=== PATIENT | male | born 1970 ===

== ENCOUNTER 2021-08-19 08:24 | Observation (INO) ==
--- NOTE | 2021-08-19 09:12 | Pre Anesthesia Assessment ---
Date of Service August 19, 2021 Pre Sedation Assessment Vital Signs Temp Pulse Resp BP Pulse Ox 08/19/21 08:42 36.5 C 88 20 143/73 H 98 Cardiovascular + regular rate and + regular rhythm + S1 normal and + S2 normal; no murmur + femoral pulses present and + radial pulses present; no JVD and no carotid bruit no edema Respiratory normal respiratory effort, lungs clear to auscultation Pre-Sedation Airway Assessment Smoking Status: Never smoker Hx Sleep Apnea: Yes Short, Thick Neck: Yes Thyromental Distance: < 3.5 Finger Breadths Oral Cavity: + WNL Mallampati Class: III ASA: ASA3 NPO Status Date of Last Intake of Fluids: 08/19/21 Time of Last Intake of Fluids: 06:00 Date of Last Intake of Solid Food: 08/18/21 Time of Last Intake of Solid Foods: 23:00 Procedure Planning Contraindications for Sedation: none Current Medications Reviewed: Yes Notes The planned sedation has been discussed with the patient. Informed Consent was obtained. I have identified the patient, determined the appropriateness of sedation and have assessed the patient immediately prior to the procedure. All medicine(s) and interventions are by my order.
--- NOTE | 2021-08-19 09:12 | History & Physical Bridge Note ---
Date of Service August 19, 2021 History & Physical Bridge Note I have examined the patient, reviewed the History & Physical and in the interval since the performance of the History & Physical I have noted the following changes of clinical significance: no changes noted
[2021-08-19] MEDS ORDERED: MIDAZOLAM HCL 1 MG/ML 2ML VIAL ONE ×2 (10:15→13:13)
[2021-08-19] MEDS ORDERED: niCARdipine HCL INJ 2.5 MG/ML 10 ML AMP ONE ×2 (10:16→13:13)
[2021-08-19] MEDS ORDERED: fentaNYL citrate 100 MCG/2 ML VIAL ONE ×2 (10:16→13:13)
[2021-08-19] MEDS ORDERED: HEPARIN (PORCINE) 1000 UNIT/ML 10 ML (CATH LAB USE ONLY) ONE ×3 (10:16→13:54)
[2021-08-19] MEDS ORDERED: NITROGLYCERIN/D5W 100MCG/ML 20ML SYR ONE ×2 (10:16→13:14)
--- NOTE | 2021-08-19 11:21 | Post Anesthesia Assessment ---
Date of Service August 19, 2021 Post Sedation Assessment Vital Signs Temp Pulse Resp BP Pulse Ox 08/19/21 08:42 36.5 C 88 20 143/73 H 98 Recovery Score Activity: Moves 4 extremities Respiration: Deep Breath/Cough Circulation: +/-20-49% PreAnes Value Consciousness: Arouseable (by name) Oxygen Saturation: O2 needed for >90% (3L NC) Discharge Sedation Level of Care: Phase I Post Sedation Plan On clinical assessment, the patient appears to have tolerated the sedation without complications. Patient is recovering as anticipated. Patient will continue to be monitored by nursing and may be discharged when sedation discharge criteria are met per below protocol. Upon Completions of procedure up to 15 minutes continue every 5 minute vital signs and the P.A.R. score; then discharge to a Phase I or Fast Track to Phase II per the following guidelines: * Discharge Patient to appropriate Phase II area if PAR is 8 or greater or return to pre- procedure baseline. The post - procedure orders will be as directed. * If PAR score is less than 8 or not return to pre-procedure baseline then patient will follow Phase I monitoring till PAR is reached for Phase II. The Phase I may be done in procedure room or may call to secure a Phase I area. * If naloxone or flumazenil are used for reversal, hold in Phase I for continued monitoring from when last reversal dose was given for a minimum of 60 minutes or longer pending the nurse and/or physician discretion of patient condition before discharge to Phase II. Please call the Sedation Physician to re-evaluate and complete post-note for discharge to Phase II area. Do NOT discharge from procedure sedation or Phase 1 until post- sedation evaluation note is complete by procedure /sedation MD Sedation Discharge Instructions to be given to the patient at discharge to home.
--- NOTE | 2021-08-19 11:23 | Cardiac Catheterization ---
Cardiac Cath Procedure Full Procedure Date August 19, 2021 Pre-Procedure Diagnosis Pre-Procedure Diagnosis: Angina and Positive Stress Test AUC Score AUC Score: 7 Post-Procedure Diagnosis Post-Procedure Diagnosis: Severe CAD Procedure(s) Performed Procedure(s) Performed: Coronary Angiography Wood Carver Talat Quispe DO Cocktail Lounge Manager(s) Miroslava RTR Estimated Blood Loss Estimated Blood Loss: 6cc Medication(s) Medication(s): Fentanyl, Heparin, Lidocaine 1%, Nicardipine, Nitroglycerin and Versed Summary of Findings 70% mid LAD, type 1 vessel, bifurcation lesion. 100% Ramus with VERONICA 1 flow. 70% proximal LPL #3 Hemodynamics Rest Ao:: 118/80/102 Final Ao: 128/84/105 LV: N/A Recommendations Recommendations: PCI without planned CABG Specimens Specimens: None Radiation Exposure (mGy) 2020 Contrast (mls) 95 Drains Drains: N/A Anesthesia Moderate sedation. Start 1045. End 1116. Sedation monitor Alexander CAMPA. Procedural Complication(s) None Disposition [employer] Holding/Recovery (Patient taken to holding area with sheath in place due to emergent, "heart alert". Interventional cardiology consulted for PCI of LAD.) I attest to the content of the Intraoperative Record and any orders documented therein. Any exceptions are noted below. [facility] Data: [employer] Cardiac Status Clinical evaluation leading to the procedure 50-year-old patient presented to the [employer] for coronary angiography due to abnormal exercise stress echo suggesting anterior ischemia. CAD Presenation: Positive Stress Test and Stable angina Anginal Classification: CCS II Coronary Anatomy Left Main (% Stenosis): Distal (luminal irregularities, 20%) LAD (% Stenosis): Mid (70% bifurcation lesion) D1 (% Stenosis): Proximal (30%) Circumflex (% Stenosis): Normal OM1 (% Stenosis): Normal L PL1 (% Stenosis): Normal (Small vessel) L PL2 (% Stenosis): Normal (Small vessel) RCA (% Stenosis): Proximal (Diffuse luminal irregularities throughout the vessel ranging from 20-30%.) R PDA (% Stenosis): Proximal (Luminal irregularities, 10%) and Mid (20%) R PL1 (% Stenosis): Normal R PL2 (% Stenosis): Ostial (20%, there is 70% ostial stenosis involving the third right posterior lateral branch vessel) Diagnostic Physicians Name: Talat Quispe DO Closure Device Recommendations: PCI without planned CABG Intraprocedure Events Significant Disection: No Perforation: No
[2021-08-19] MEDS ORDERED: CLOPIDOGREL BISULFATE 300 MG TAB ONE (14:23)
[2021-08-19] MEDS ORDERED: HYDROCODONE/ACETAMOPHEN 5/325MG TAB PO PRN (15:04)
--- NOTE | 2021-08-19 17:05 | Post Anesthesia Assessment ---
Date of Service August 19, 2021 Post Sedation Assessment Vital Signs Temp Pulse Resp BP Pulse Ox 08/19/21 16:40 98.1 F 85 18 115/64 94 08/19/21 16:02 98.2 F 87 18 126/69 94 08/19/21 15:45 78 20 150/75 H 94 08/19/21 15:30 79 20 133/105 H 94 08/19/21 15:15 72 20 133/78 94 08/19/21 15:00 73 20 121/83 94 08/19/21 14:45 76 20 115/82 95 08/19/21 14:30 83 20 124/80 97 08/19/21 13:00 75 20 138/75 97 08/19/21 12:45 71 20 131/70 99 08/19/21 12:30 66 20 123/65 96 08/19/21 12:15 75 20 126/65 93 08/19/21 12:00 79 20 133/73 96 08/19/21 11:45 81 20 109/84 97 08/19/21 08:42 97.7 F 88 20 143/73 H 98 Recovery Score Activity: Moves 4 extremities Respiration: Deep Breath/Cough Circulation: +/-20% PreAnes Value Consciousness: Fully Awake Oxygen Saturation: > 92% On Room Air Post Anesthesia Score: 10 Discharge Sedation Level of Care: Fast Track Phase II Post Sedation Plan On clinical assessment, the patient appears to have tolerated the sedation without complications. Patient is recovering as anticipated. Patient will continue to be monitored by nursing and may be discharged when sedation discharge criteria are met per below protocol. Upon Completions of procedure up to 15 minutes continue every 5 minute vital signs and the P.A.R. score; then discharge to a Phase I or Fast Track to Phase II per the following guidelines: * Discharge Patient to appropriate Phase II area if PAR is 8 or greater or return to pre- procedure baseline. The post - procedure orders will be as directed. * If PAR score is less than 8 or not return to pre-procedure baseline then patient will follow Phase I monitoring till PAR is reached for Phase II. The Phase I may be done in procedure room or may call to secure a Phase I area. * If naloxone or flumazenil are used for reversal, hold in Phase I for continued monitoring from when last reversal dose was given for a minimum of 60 minutes or longer pending the nurse and/or physician discretion of patient condition before discharge to Phase II. Please call the Sedation Physician to re-evaluate and complete post-note for discharge to Phase II area. Do NOT discharge from procedure sedation or Phase 1 until post- sedation evaluation note is complete by procedure /sedation MD Sedation Discharge Instructions to be given to the patient at discharge to home.
--- NOTE | 2021-08-19 17:08 | Cardiac Catheterization ---
[facility] Data: Staffing Rn Cardiac Status Clinical evaluation leading to the procedure CAD Presenation: Positive Stress Test Diagnostic Physicians Name: Kaushal Melendez MD Closure Device Recommendations: PCI without planned CABG Cardiac Cath Procedure Full Procedure Date August 19, 2021 Pre-Procedure Diagnosis Pre-Procedure Diagnosis: Angina and Positive Stress Test AUC Score AUC Score: 7 Post-Procedure Diagnosis Post-Procedure Diagnosis: Severe CAD Procedure(s) Performed Procedure(s) Performed: Coronary Angiography, Drug Eluting Stent and IVUS Redevelopment Manager Kaushal Melendez MD Dice Manager(s) Miroslava RTR Estimated Blood Loss Estimated Blood Loss: 15 Medication(s) Medication(s): Clopidogrel, Fentanyl, Heparin, Nicardipine, Nitroglycerin and Versed Summary of Findings Indication: Angina, abnormal stress test Access: 6 Fr right radial artery Catheters: EBU 3.5 guide Findings: For full details of patient's coronary angiography please see cath report dictated by Dr. Quispe. Briefly, patient found to have severe mid LAD disease at bifurcation with medium caliber diagonal. Decision to proceed with PCI. -- PCI -- Antithrombotic therapy: Heparin, clopidogrel Procedure: Left main cannulated with EBU 3.5 guide Pre-procedure flow VERONICA 3 BMW wire passed across lesion into distal LAD Prowater wire placed into diagonal [place] IVUS pullback from mid LAD revealed mild to moderate, eccentric calcification with minimal disease in left main, LAD ostium. Unable to pass catheter across stenosis at bifurcation with diagonal. Mid LAD lesion predilated with 2.5 compliant balloon Dilated lesion stented with 2.5 x 26 mm [place] drug-eluting stent Stent post-dilated with 3.0 noncompliant balloon Diagonal rewired with whisper wire Ostium of diagonal dilated with 2.0 balloon through stent struts. IC vasodilators administered for spasm Repeat IVUS assessment of LAD showed well apposed, well-expanded stent with mild to moderate disease downstream from stent, no apparent edge complications. Post procedure VERONICA 3 flow, stent well expanded with minimal residual stenosis and no apparent cardiac complications. Arterial Closure: TR band Summary: 1. Successful PCI of mid LAD with single drug-eluting stent (2.5 x 26 mm [place]; postdilated with 3.0 NC) across takeoff of medium diagonal. Angioplasty of jailed diagonal ostium through stent struts with 2.0 balloon Recommendations: To PCU for continued monitoring Loaded with clopidogrel 600 mg in Staffing Rn Continue dual-antiplatelet therapy for at least 6 months Continue statin, and ASCVD risk factor modification Consult cardiac Rehab Hemodynamics Rest Ao:: 125/83/102 Final Ao: 120/78/94 LV: Fr Recommendations Recommendations: PCI without planned CABG Specimens Specimens: None Radiation Exposure (mGy) 4709 Contrast (mls) 210 Drains Drains: N/A Anesthesia Moderate sedation. Start 1335. End 1426. Sedation monitor Alexander CAMPA. Procedural Complication(s) None Disposition PCU I attest to the content of the Intraoperative Record and any orders documented therein. Any exceptions are noted below. [facility] Card Cath Procedure Codes Therapeutic Services & Ancillary Proc Procedure 1: Cardiovascular Tx and Anc Procedures: 58132 IV Ultrasound (Coronary or Graft) Moderate Sedation Procedure 1: Sedation/Anesthesia: 43502 Mod Sedation by the same physician; Ea [id number] Minutes Stenting Procedure 1: Cardiovascular Stent Procedures: 40195 Perc transcatheter placement of intracoronary stent(s), with ang PG Care Time/CCT Total # of Minutes Spent Total Time Spent with Patient: Total time spent is greater than 50% in coordination of care (as documented) at patient's floor/unit and/or counseling patient:
[2021-08-19] MEDS: PREGABALIN 150 MG CAP PO SCH ×2 (17:35→20:58)
[2021-08-19] MEDS ORDERED: GLUCOSE 40% GEL 15 GM TUBE PO PRN (18:00)
[2021-08-19] MEDS ORDERED: GLUCAGON FOR INJ 1 MG VIAL IM PRN (18:00)
[2021-08-19] MEDS ORDERED: GLUCOSE 10 TABS/TUBE PO PRN (18:00)
[2021-08-19] MEDS ORDERED: CARBOHYDRATES FOR HYPOGLYCEMIA PO PRN (18:00)
[2021-08-19] MEDS ORDERED: DEXTROSE 50% 50 ML SYRINGE IV PRN (18:00)
--- NOTE | 2021-08-19 18:53 | Hospitalist Consultation ---
Date of Consultation August 19, 2021 History of Present Illness Reason for Consultation: Diabetes management. Requesting Physician: Talat Quispe DO Attending Physician: Talat Quispe DO History of Present Illness Vinh is a 50-year-old male with past medical history significant for CAD, DM2 on insulin therapy, hypertension, GERD who was admitted today for cardiac catheterization after sprinting angina positive stress test. Patient was found to have severe mid LAD disease at 5 rotation, therefore successful PCI of mid LAD with single GERMAN was placed. Patient transferred to PCU, hospitalist service was consulted for diabetes management. At home, patient is on canagliflozin 300 mg daily, NovoLog 24 units 3 times daily, Tresiba Allergies Allergy/AdvReac Type Severity Reaction Status Date / Time No Known Allergies Allergy Unverified 08/19/21 10:42 Home Medications Medication Instructions Recorded Confirmed Type aspirin 81 mg tablet,delayed 81 mg PO DAILY 08/19/21 08/19/21 History release canagliflozin 300 mg tablet 300 mg PO DAILY 08/19/21 08/19/21 History fenofibrate nanocrystallized 145 145 mg PO DAILY 08/19/21 08/19/21 History mg tablet (Tricor) hydrocodone 5 mg-acetaminophen 325 1 tab PO BID PRN 08/19/21 08/19/21 History mg tablet icosapent ethyl 1 gram capsule 2 g PO BID 08/19/21 08/19/21 History insulin aspart U-100 100 unit/mL 24 unit SUBCUT TID 08/19/21 08/19/21 History (3 mL) subcutaneous pen (Novolog Flexpen U-100 Insulin aspart) insulin degludec 200 unit/mL (3 See Rx Instructions .ROUTE .COMPLEX 08/19/21 08/19/21 History mL) subcutaneous pen (Tresiba FlexTouch U-200 insulin) lisinopril 10 mg tablet 10 mg PO DAILY 08/19/21 08/19/21 History nitroglycerin 0.4 mg sublingual 0.4 mg SUBLINGUAL PRN 08/19/21 History tablet omeprazole 40 mg capsule,delayed 40 mg PO DAILY 08/19/21 08/19/21 History release pregabalin 150 mg capsule 150 mg PO QID 08/19/21 08/19/21 History rosuvastatin 20 mg tablet 20 mg PO DAILY 08/19/21 08/19/21 History trazodone 150 mg tablet 150 mg PO HS 08/19/21 08/19/21 History Patient History Social History Smoking Status: Never smoker Hx Alcohol Use: No Hx Substance Use: No Preferred Language: Beninese Communication Ability: Effective Mechanic Driver Required: No Beliefs That Will Affect Care: None Current Living Situation: Spouse Other Information That Helps Us Care for You: No Feels Safe at Home: Yes Safety Concerns: Feels Safe At This Time Results & Data Results & Data ([facility]) Vital Signs (Past 12 Hours) Vital Signs Temp Pulse Resp BP Pulse Ox 08/19/21 18:21 86 18 113/71 93 08/19/21 17:59 89 20 120/76 91 08/19/21 17:30 84 18 120/74 93 08/19/21 17:21 91 H 20 119/77 93 08/19/21 17:01 89 18 125/81 94 08/19/21 16:40 36.7 C 85 18 115/64 94 08/19/21 16:02 36.8 C 87 18 126/69 94 08/19/21 15:45 78 20 150/75 H 94 08/19/21 15:30 79 20 133/105 H 94 08/19/21 15:15 72 20 133/78 94 08/19/21 15:00 73 20 121/83 94 08/19/21 14:45 76 20 115/82 95 08/19/21 14:30 83 20 124/80 97 08/19/21 13:00 75 20 138/75 97 08/19/21 12:45 71 20 131/70 99 08/19/21 12:30 66 20 123/65 96 08/19/21 12:15 75 20 126/65 93 08/19/21 12:00 79 20 133/73 96 08/19/21 11:45 81 20 109/84 97 08/19/21 08:42 36.5 C 88 20 143/73 H 98 PG Care Time/CCT Total # of Minutes Spent Total Time Spent with Patient: Total time spent is greater than 50% in coordination of care (as documented) at patient's floor/unit and/or counseling patient: Coding
[2021-08-19] MEDS: INSULIN ASPART PER UNIT SC SCH (20:59)
[2021-08-19] MEDS ORDERED: traZODone HCL 50 MG TAB PO SCH (21:00)
--- NOTE | 2021-08-20 08:34 | Consultation Report ---
DATE OF CONSULTATION: 08/20/2021. CHIEF COMPLAINT: Status post cardiac catheterization and stent placement. HISTORY OF PRESENT ILLNESS: A 50-year-old male with past medical history significant for type 2 diabetes, hypertriglyceridemia, hypertension, obesity, sleep apnea. The patient has had abnormal stress test as outpatient and he is status post elective cardiac catheterization and had a successful stent to the mid LAD, a single drug-eluting stent, angioplasty of jailed diagonal ostium through stent struts with 2.0 balloon. The patient is currently resting comfortably, sleeping. He was having some atypical chest pain and referred for an exercise stress echocardiogram and it shows some abnormal EKG on the stress test, and was decided for elective cardiac catheterization . Currently, denies any headache. No blurred visions, no earache, no runny nose, no sore throat, no cough, no fevers, no chest pain, no shortness of breath. No nausea, no vomiting, no abdominal pain. Normal bowel and bladder movements. Hemodynamically stable. ALLERGIES: No known drug allergies. PAST MEDICAL HISTORY: As mentioned above. PAST SURGICAL HISTORY: Left heart catheterization, stent placement. MEDICATIONS: The patient is on aspirin 81 mg p.o. daily, canaglifozin 300 mg p.o. daily, fenofibrate 145 mg p.o. daily, hydrocodone/acetaminophen 1 tablet p.o. b.i.d. p.r.n., icosapent ethyl 2 g p.o. b.i.d., NovoLog FlexPen 25 units subcutaneous t.i.d., Tresiba as directed, lisinopril 10 mg p.o. daily, omeprazole 40 mg p.o. daily, pregabalin 150 mg p.o. q.i.d., rosuvastatin 20 mg p.o. daily, trazodone 150 mg p.o. at bedtime. FAMILY HISTORY: Significant for father had prostate cancer, uncle has prostate cancer. SOCIAL HISTORY: , no smoking, no alcohol, no drug use. REVIEW OF SYSTEMS: As per HPI. Rest of the review of systems is negative. PHYSICAL EXAMINATION: GENERAL: The patient is morbidly obese, not in acute distress. VITAL SIGNS: Temperature 36.9, pulse 63, respiratory rate 17, blood pressure 179/73, oxygen 97% on room air. HEENT: Pupils equal, round and reactive to light. Oral mucosa moist. LUNGS: No JVD, no neck masses. CARDIOVASCULAR: S1 and S2 heard. Regular rate and rhythm. No murmur, no gallop. RESPIRATORY: Normal AP diameter. No accessory muscle use. No wheezing, no crackles. ABDOMEN: Soft. Bowel sounds are present, nontender, no distention. CENTRAL NERVOUS SYSTEM: Cranial nerves II-XII grossly intact, nonfocal. EXTREMITIES: Right radial catheterization site has no drainage or swelling seen. Lower extremities, no edema or erythema seen. LABORATORY DATA: Unavailable at this time. ASSESSMENT AND PLAN: This is a 50-year-old male who had an abnormal stress test and has elective cardiac catheterization. 1. Coronary artery disease, abnormal stress test: Had an elective cardiac cath, showed 70% stenosis of the mid LAD, 30% proximal D1 stenosis. RCA 20% to 30% stenosis. There is 70% ostial stenosis involving third right posterolateral branch vessel and is status post stent to the mid LAD and angioplasty of the jailed diagonal ostium. Loaded with Plavix. Post catheterization care as per cardiology. Currently on aspirin, Plavix, on his home medications of Tricor, Crestor, icosapent ethyl. Closely monitor in the tele floor. 2. Diabetes: Currently on insulin sliding scale and canagliflozin is also ordered. Will follow the blood sugars and adjust his insulin regimen. 3. Hypertension: On lisinopril. Monitor the blood pressure. 4. Gastroesophageal reflux disease: On Protonix. 5. Hyperlipidemia: As mentioned above. 6. Deep venous thrombosis prophylaxis.scds DISPOSITION: As per Cardiology. Job ID: [id number] [facility]
[2021-08-20] MEDS: INSULIN ASPART PER UNIT SC SCH ×2 (08:46→12:06)
[2021-08-20] MEDS: PREGABALIN 150 MG CAP PO SCH ×2 (08:51→12:11)
[2021-08-20] MEDS ORDERED: ASPIRIN 81 MG ECTAB PO SCH (09:00)
[2021-08-20] MEDS ORDERED: CLOPIDOGREL BISULFATE 75 MG TAB PO SCH (09:00)
[2021-08-20] MEDS ORDERED: ROSUVASTATIN CALCIUM 20 MG TAB PO SCH (09:00)
[2021-08-20] MEDS ORDERED: PANTOprazole 40 MG TAB PO SCH (09:00)
[2021-08-20] MEDS ORDERED: FENOFIBRATE NANOCRYSTALLIZED 145 MG TABLET PO SCH (09:00)
[2021-08-20] MEDS ORDERED: lisinopril 10 MG TAB PO SCH (09:00)
--- NOTE | 2021-08-20 10:55 | Cardiology Progress Note ---
Date of Service August 20, 2021 Assessment & Plan Plan: The patient can be discharged today to outpatient follow-up. I will arrange follow-up through our clinic. Admission and Anticipated Discharge Date Admission Date: August 19, 2021 Subjective The patient had an uneventful night. Review of Systems Review of Systems: Review of Systems: See HPI for pertinent positives. All other 10 point review of systems are negative. Physical Exam Physical Exam: General: no acute distress and stated age Head: normocephalic, no masses, lesions, tenderness or abnormalities Eyes: conjunctiva are pink and non-injected, sclera clear Neck: supple, no adenopathy, no bruits, normal jugular venous pulse, no hepatojugular reflux Chest: normal shape and normal respiratory effort Lungs: clear to auscultation and percussion Cardiac Exam: - regular rate & rhythm, no murmurs gallops or rubs - normal S1, normal S2 Pulses: 2(+) throughout Abdomen: abdomen soft, non-tender, no abnormal masses and no hepatosplenomegaly Musculoskeletal: no gait disturbance, no joint inflammation, no deforming arthritis Extremities: Cath site looks good Neuro: grossly normal exam Results & Data ([facility]) Vital Signs (Past 12 Hours) Vital Signs Temp Pulse Pulse Resp BP Pulse Ox 08/20/21 07:27 37.0 C 80 18 139/69 96 08/20/21 07:01 71 08/20/21 03:55 75 18 96 08/20/21 03:42 37.1 C 66 18 135/77 93 08/20/21 00:03 63 17 97 08/19/21 23:09 36.9 C 81 18 179/73 H 95 Laboratory Results Laboratory Results - last 24 hr 08/19/21 08/19/21 08/20/21 16:18 20:12 07:17 POC Glucose 120 H 197 H 166 H 08/20/21 10:55 POC Glucose 207 H Medications Administered Current Inpatient Medications Hydrocodone Bitart/Acetaminophen (Hydrocodone/Acetamophen 5/325mg Tab) 1 tab PO BID PRN PRN Reason: Pain Stop: 09/02/21 15:03 Aspirin (Aspirin 81 Mg Ectab) 81 mg PO DAILY [facility] Stop: 09/19/21 08:59 Last Admin: 08/20/21 08:48 Dose: 81 mg Documented by: Clopidogrel Bisulfate (Clopidogrel Bisulfate 75 Mg Tab) [facility] [place] Stop: 09/19/21 08:59 Last Admin: 08/20/21 08:48 Dose: 75 mg Documented by: Dextrose (Dextrose 50% 50 Ml Syringe) 25 - 50 ml IV UD PRN; Protocol PRN Reason: Hypoglycemia Protocol Stop: 09/18/21 17:59 Fenofibrate (Fenofibrate Nanocrystallized 145 Mg Tablet) 145 mg PO DAILY [facility] Stop: 09/19/21 08:59 Last Admin: 08/20/21 08:48 Dose: 145 mg Documented by: Glucagon (Glucagon For Inj 1 Mg Vial) 1 mg IM UD PRN; Protocol PRN Reason: Hypoglycemia Protocol Stop: 09/18/21 17:59 Glucose (Glucose 40% Gel 15 Gm Tube) 15 - 30 gm PO UD PRN; Protocol PRN Reason: Hypoglycemia Protocol Stop: 09/18/21 17:59 Glucose (Glucose 10 Tabs/Tube) 4 - 8 tabs PO UD PRN; Protocol PRN Reason: Hypoglycemia Protocol Stop: 09/18/21 17:59 Insulin Aspart (Insulin Aspart Per Unit) 0 units SC ACHS [facility] Stop: 09/18/21 20:59 Last Admin: 08/20/21 08:46 Dose: 8 units Documented by: Lisinopril (Lisinopril 10 Mg Tab) 10 mg PO DAILY [facility] Stop: 09/19/21 08:59 Last Admin: 08/20/21 08:48 Dose: 10 mg Documented by: Miscellaneous (Canagliflozin 300 Mg Tablet - Order Awaiting Action) 1 ea N/A QS [facility] Stop: 09/19/21 00:00 Last Admin: 08/20/21 08:21 Dose: Not Given Documented by: Miscellaneous (Icosapent Ethyl 1 Gram Capsule - Order Awaiting Action) 1 ea N/A QS [facility] Stop: 09/19/21 00:00 Last Admin: 08/20/21 08:21 Dose: Not Given Documented by: Miscellaneous (Carbohydrates For Hypoglycemia ) 15 - 30 gm PO UD PRN PRN Reason: Hypoglycemia Treatment Stop: 09/18/21 17:59 Pantoprazole Sodium (Pantoprazole 40 Mg Tab) 40 mg PO DAILY [facility] Stop: 09/19/21 08:59 Last Admin: 08/20/21 08:48 Dose: 40 mg Documented by: Pregabalin (Pregabalin 150 Mg Cap) 150 mg PO QID [facility] Stop: 09/18/21 16:59 Last Admin: 08/20/21 08:51 Dose: 150 mg Documented by: Rosuvastatin Calcium (Rosuvastatin Calcium 20 Mg Tab) 20 mg PO DAILY [facility] Stop: 09/19/21 08:59 Last Admin: 08/20/21 08:48 Dose: 20 mg Documented by: Trazodone HCl (Trazodone Hcl 50 Mg Tab) 150 mg PO HS [facility] Stop: 09/18/21 20:59 Last Admin: 08/19/21 20:59 Dose: Not Given Documented by:
--- NOTE | 2021-08-20 13:36 | Discharge Summary ---
Date of Service August 20, 2021 Principal Diagnosis coronary artery disease s/p stent placement Discharge Data Allergies Allergy/AdvReac Type Severity Reaction Status Date / Time No Known Allergies Allergy Unverified 08/19/21 10:42 Consultations 08/19/21 15:07 Consult Hospitalist Routine 08/19/21 23:30 Consult Hospitalist Routine Procedures Performed Operation Date: 08/19/21 09:30 Actual Procedures p Cineradiography w/Routine Exam - Talat Quispe DO p Cath, Coronaries ONLY (no LV) - Talat Quispe, s IVUS Coronary Single Vessel - Thai Melendez MD p Drug Eluting Stent SGl Vessel - Thai Melendez MD Ordered Studies 08/19/21 06:34 CL Cath Imgs for PACS use only Routine 08/19/21 14:23 CL IVUS Coronary Single Vessel Routine Discharge Plan Discharge Items Patient Disposition: Home - Self-Care Reason For Visit: Abnormal Stress Test Discharge Diagnosis: coronary artery disease s/p stent placement Condition on Discharge: Good Activity: Resume your previous activity Non-emergency contact: Primary Care Provider Call non-emergency contact if: you have any medication questions, your symptoms worsen, your pain is not controlled, your pain is worsening, your pain is unusual for you, your pain is concerning for you, you have a fever, your wound has increased redness, your wound has increased drainage and your wound pain has increased Follow-up/Referrals: Doug Coffey MD [Primary Care Provider] - Diet: Heart Healthy Addtl Attending Provider Instructions: ACTIVITY RECOMMENDATIONS: It is common to feel weak and fatigue for a few days. * Do not drive or operate any motorized equipment for the next three days. * Limit stair usage (2 or 3 trips a day only) for the next three days. * Do not lift anything heavier than 10 pounds for the next three days. * Do not engage in vigorous exercise or any sports for the next five days. * You may shower the day after your procedure, but do not immerse the area for three days. Cleanse the site gently with soap and water. SPECIAL CARE INSTRUCTIONS: * You may replace the pressure dressing or band-aid the morning after the procedure. * After your procedure, it is normal to have a small bruise or small lump at the site. Examine your site daily for any change in the bruise or lump, redness, swelling, drainage or numbness. Notify your doctor if any change. BLEEDING: * If there is a small amount of bleeding at the site, lie down and apply firm pressure with a clean cloth for ten minutes. When the bleeding stops, lie quietly keeping the procedure limb straight for six hours. Notify your doctor as soon as possible. * If the bleeding does not stop after ten minutes or if there is a large amount of bleeding or spurting, call 911 immediately. Continue to lie down and hold firm pressure until help arrives. SKIN IRRITATION: * You may experience some redness and/or swelling in the area where radiation was administered. If any skin irritation occurs, please contact your family physician. FOLLOW UP VISIT: Keep any scheduled doctor appointments. Pending Studies at Discharge: No Stand-Alone Forms: My [facility] Medications and DC Order Prescriptions: New clopidogrel 75 mg Tablet 75 mg PO QAM Qty: 30 RF: 0 Continued hydrocodone-acetaminophen 5-325 mg Tablet 1 tab PO BID PRN (Reason: Pain) RF: 0 omeprazole 40 mg Capsule,Delayed Release(Dr/Ec) 40 mg PO DAILY RF: 0 aspirin 81 mg Tablet,Delayed Release (Dr/Ec) 81 mg PO DAILY RF: 0 trazodone 150 mg Tablet 150 mg PO HS RF: 0 lisinopril 10 mg Tablet 10 mg PO DAILY RF: 0 nitroglycerin 0.4 mg Tablet, Sublingual 0.4 mg sublingual PRN (Reason: Chest Pain) RF: 0 insulin aspart U-100 [Novolog Flexpen U-100 Insulin] 100 unit/mL (3 mL) Insulin Pen 24 unit SUBCUT TID RF: 0 rosuvastatin 20 mg Tablet 20 mg PO DAILY RF: 0 pregabalin 150 mg Capsule 150 mg PO QID RF: 0 fenofibrate nanocrystallized [Tricor] 145 mg Tablet 145 mg PO DAILY RF: 0 icosapent ethyl 1 gram Capsule 2 g PO BID RF: 0 canagliflozin 300 mg Tablet 300 mg PO DAILY RF: 0 Tresiba FlexTouch U-200 200 unit/mL (3 mL) Insulin Pen See Rx Instructions .ROUTE .COMPLEX RF: 0 Discharge Orders: Discharge Order (Routine); Ordered 08/20/21 Ordered By: Gina Jin/Other Patient Handouts: Plavix Oral Tablet 75 mg, ED Cardiac Cath Post Bleed Admission Data Admit Date/Time: 08/19/21 15:00 Attending Provider: Gina Gomez Admit Provider: Talat Quispe Primary Care Provider: Doug Coffey Other Providers: Uvaldo Landon ; Gina Gomez Other Interventions: Discharge Summary Assessment (RN) Last Done: 08/20/21 12:25
== END 2021-08-20 14:05 | disposition home or self-care (01) ==
LOC: 2S 08:24 → CC 08:24 → SUATTDRO 15:00
PROC: CLB.CCO (2021-08-19 09:30)